=== PATIENT | male | born 1965 | race Caucasian/White ===

== ENCOUNTER 2022-12-14 13:52 | Inpatient (IN) | payer MEDICAID, SELFPAY ==
[2022-12-14 14:12] VITALS: BP 152/88; PULSE 100; RESP 16; TEMP 36.8; O2SAT 100
[2022-12-14 14:16] VITALS: BMI 21.6
[2022-12-14] MEDS: oxyCODONE 5 MG Tablet PO (16:15)
--- NOTE | 2022-12-14 16:40 | HP.PCM_ITS ---
[facility] - General General Date of Admission: 12/14/22 Date of Service: 12/14/22 Chief Complaint: Debility due to recent extensive back surgery due to canal stenosis. HPI Narrative VAISHALI QUIROZ, is a 57 M YO M with a PMH of Prurigo Nodularis, prior drug use, remote tobacco dependence since (quit 11/04/22), BPH, COPD, chronic Benzodiazepine use, chronic narcotic use, anxiety/depression and chronic back pain who recently had extensive back surgery extending from T2 to the pelvis. He had severe canal stenosis and flat back syndrome. HE has lost 20-25 lbs in recent months due to poor appetite associated with chronic severe pain. He has been taking Oxycodone 10 mg every 4 hours as needed for pain control. He was taking Dilaudid and Fentanyl at the previous hospital. He has become debilitated waiting for the surgery and his legs are very weak. He has a lot of difficulty ambulating. He was evaluated by PT/OT at the previous hospital and acute inpt rehab was recommended. He was transferred to the acute inpt rehab unit at [facility] on 12/14/22 for 3 hours of therapy daily to restore function at or near his baseline. [facility] Medical History (Updated 12/17/22 @ 10:[address] Elysia Noaln, ) Anxiety and depression Back pain BPH (benign prostatic hyperplasia) Central stenosis of spinal canal Chronic prescription benzodiazepine use COPD (chronic obstructive pulmonary disease) Prurigo nodularis Syncope Home Medications acetaminophen 325 mg tablet 650 mg PO Q6H PRN pain 1-10 12/14/22 [History Last Taken Unknown] albuterol sulfate 2.5 mg/0.5 mL solution for nebulization 2.5 mg inhalation Q6H PRN PRN sob/wheezing 12/14/22 [History Last Taken Unknown] clonazepam 0.5 mg tablet 0.5 mg PO BID Check with primary doctor 12/14/22 [History Last Taken Unknown] cyclobenzaprine 10 mg tablet 10 mg PO TID PRN muscle spasm 12/14/22 [History Last Taken Unknown] duloxetine 30 mg capsule,delayed release 30 mg PO BID Check with primary doctor 12/14/22 [History Last Taken Unknown] ferrous sulfate 325 mg (65 mg iron) tablet 325 mg PO DAILY supplement 12/14/22 [History Last Taken Unknown] fluticasone fur. 200 mcg-umeclid 62.5 mcg-vilant 25 mcg inhalat.powder (Trelegy Ellipta) 1 inh inhalation QHS Check with primary doctor 12/14/22 [History Last Taken Unknown] lidocaine 5 % topical patch (Lidoderm) 1 patch topical DAILY pain 12/14/22 [History Last Taken Unknown] montelukast 10 mg tablet 10 mg PO DAILY Check with primary doctor 12/14/22 [History Last Taken Unknown] nicotine 14 mg/24 hr daily transdermal patch 1 patch transdermal DAILY Check with primary doctor 12/14/22 [History Last Taken Unknown] oxycodone 5 mg tablet 5 - 10 mg PO Q4H PRN Pain 12/14/22 [History Last Taken Unknown] polyethylene glycol 3350 17 gram/dose oral powder (Miralax) 17 g PO QHS Check with primary doctor 12/14/22 [History Last Taken Unknown] tamsulosin 0.4 mg capsule 0.4 mg PO DAILY retention 12/14/22 [History Last Taken Unknown] triamcinolone acetonide 0.1 % topical ointment 1 applic topical BID Check with primary doctor 12/14/22 [History Last Taken Unknown] Allergy/AdvReac Type Severity Reaction Status Date / Time No Known Allergies Allergy Verified 12/14/22 14:18 Family History unable to obtain no significant family history Surgical History (Updated 12/17/22 @ 10:[address] Elysia Nolan DO) Fusion of spine, thoracolumbar region Social History Smoking Status: Former smoker how long ago did patient quit smokin11/04/22 ROS Constitutional Constitutional: Denies anorexia, chills, fatigue, fever(s) or night sweats Eyes Eyes: Denies blurry vision, change in vision, eye pain or loss of vision ENT HEENT: Denies abnormal hearing, dysphagia, headache(s), hearing loss, nasal congestion or sore throat Cardiovascular Cardiovascular: Reports chest pain and other Details: The pain in the chest is mostly in the rib and is BL. ; Denies dyspnea on exertion, edema, lightheadedness, orthopnea, palpitations, paroxysmal nocturnal dyspnea or syncope Respiratory/Chest Respiratory/Chest: Denies cough, dyspnea, shortness of breath at rest, shortness of breath with exertion or wheezing Gastrointestinal Gastrointestinal: Reports constipation; Denies abdominal pain, diarrhea, dyspepsia, hematemesis, hematochezia, nausea or vomiting Genitourinary Genitourinary: Denies dysuria, hematuria, nocturia, urinary frequency, urinary hesitancy, urinary incontinence or urinary urgency Musculoskeletal Musculoskeletal: Denies joint pain, joint swelling or neck pain Integumentary Integumentary: Reports other Details: He has multiple scars on the legs and arms due to Prurigo Nodularis. He is on Dupixent and triamcinolone cream to control the itching. Dupixent has been discontinued due to recent surgery. Neurologic Neurologic: Reports paresthesias, weakness and other Details: Has generalized weakness, more so in both legs and he has also had some muscle atrophy. He was ambulating at home without an assistive device but bent over with a flat back. He previously had bilateral lower extremity radicular pain but this has resolved since the surgery. ; Denies confusion, disequilibrium, dizziness, focal weakness, headache(s), radicular pain, seizures or tremor(s) Psychiatric Psychiatric: Reports anhedonia, anxiety, change in appetite, depression and difficulty concentrating; Denies auditory hallucinations, homicidal ideation or suicidal ideation Endocrine Endocrinology: Denies polydipsia or polyuria Hematologic/Lymphatic Hematologic/Lymphatic: Denies easy bleeding, easy bruising or lymphadenopathy Allergic/Immunologic Allergic/Immunologic: Reports other Details: He has Prurigo Nodularis and follows with dermatology. ; Denies rhinitis, eczemia or asthma Vital Signs Vital Signs Vital Signs: 12/14/22 14:12 Temperature 98.2 F Temperature Source Oral Pulse Rate 100 Respiratory Rate 16 Blood Pressure 152/88 H Blood Pressure Mean 109 Blood Pressure Source Monitor Blood Pressure Position Semi-Fowlers Blood Pressure Location Right Arm Pulse Ox 100 Oxygen Delivery Method Room Air Weight Weight: 146 lb 8 oz Body Mass Index (BMI) 21.6 Physical Exam Const alert, oriented x3 and no apparent distress Constitutional Narrative: Making good eye contact, appropriate. He is sitting in the recliner and has a lot of back pain. The incision extends from T2 down to S1. He is very thin and has temporal wasting. Tells me that he has lost 20 lbs since the cord compression started. The surgery took 10 and 1/2 hours. General Appearance: cooperative, well kempt and appears older than stated age; Negative for diaphoretic HEENT normocephalic, head/scalp atraumatic and hearing grossly normal bilaterally HEENT Narrative: Dry MM, tongue appears smooth and atrophic. Head and Scalp: normocephalic and atraumatic Face and Sinus: face symmetric Eyes PERRL, EOMs intact bilaterally, conjunctivae normal, no scleral icterus and normal visual rodrigues by confrontation General Eye: normal appearance of both eyes Neck no lymphadenopathy, supple, no JVD and no carotid bruits General: trachea midline Chest Chest Narrative: Mild gynecomastia.......denies ETOH abuse. Chest: symmetrical chest wall rise Resp normal respiratory effort, normal air movement, no use of accessory muscles and clear to auscultation bilaterally Resp Narrative: Not tachypneic and no conversational dyspnea. Good air exchange especially for someone with COPD who is a longtime smoker. Effort and Inspection: able to speak in complete sentences Cardio regular rhythm, S1 normal heart sound, S2 normal heart sound, no murmurs, no rub and no gallops Cardio Narrative: Increased resting HR at 100 - suspect due to dehydration and pain. No ectopy. GI normal to inspection, nondistended, normoactive bowel sounds, soft to palpation and non-tender GI Narrative: No guarding with palpation. Back/Spine Back/Spine Narrative: The incision extends from T2 to S1. He is having back pain but, the radicular pain has resolved since the surgery. There are a few localized area of david- incisional swelling but the incision is intact with no david-incisional erythema and no discharge . Normal cervical lordosis. Extremity no clubbing, cyanosis or edema and no calf tenderness Extremity Narrative: He has atrophy of the muscles in his legs. There are multiple scars on the extremities due to Prurigo Nodularis. No open lesions. Multiple areas of depigmentation. Skin Skin Narrative: No rashes, no skin breakdown. Wound Narrative: See Back/spin for description of the incision. Neuro oriented x3, CN's II-XII intact bilaterally and no focal motor deficits Neuro Narrative: Generalized weakness with paresthesias in the LLE but no radicular pain. Psych affect normal Psych Narrative: Appropriate, making good eye contact. Able to stay on topic and focus. No flight of ideas. Does not appear anxious . Admits to feeling depressed. He takes Klonopin 0.5 mg p.o. twice daily to control anxiety and help with constant scratching. Conversant and relating well to staff. Appearance: grossly normal, appropriate and well kempt Attitude: calm Activity / Motor Behavior: appropriate eye contact Speech: normal speech Thought Process: normal thought process Attention / Concentration: attention grossly intact and concentration grossly intact Results Lab / Micro Data Result Diagrams: 12/15/22 06:34 12/15/22 06:34 Assessment & Plan Assessment/Plan (1) Physical debility: (2) Central stenosis of spinal canal: (3) Fusion of spine, thoracolumbar region: (4) Anxiety and depression: (5) Chronic prescription benzodiazepine use: (6) Prurigo nodularis: (7) Recently quit using tobacco: (8) COPD (chronic obstructive pulmonary disease): (9) BPH (benign prostatic hyperplasia): PLAN: Plan PLAN PT for gait stability OT for ADL's Analgesics as needed Bowel protocol Fall precautions Assess for Anxiety/Depression GI prophylaxis-not necessary, patient has no nausea, vomiting or abdominal pain and he has no history of peptic ulcer disease. DVT prophylaxis with WILBUR hose and enoxaparin 40 mg subcu daily Follow up with neurosurgery, pain management and PCP following DC from IP Rehab AM lab including CMP, CBC, Mag and Phos and iron studies ordered for the AM. We discussed pain control. He is satisfied with Oxycodone 10 mg Q 4H PRN. He has not been sleeping well at night due to pain and restlessness. I offered to use Oxycontin at HS for a short time for better pain relief but, he declined. We went over the rules.......no getting up by himself and must call for assistance. We discussed depression and he admitted to feeling depressed at this time. He feels his anxiety is adequately controlled. He is on Duloxetine 30 mg BID.......may need to increase the dose or add Wellbutrin. Charges/Coding Visit Charges Inpatient E&M: 13346 Init Hosp L3
[2022-12-14] MEDS: Tamsulosin HCl 0.4 MG Capsule PO (16:58)
--- NOTE | 2022-12-14 17:31 | REHABEVAL_ITS ---
Admission Information Primary Diagnosis:: Physical debility secondary to extensive back surgery ranging from T2-pelvis. This document was not completed. Kamran left AMA Saturday AM prior to being seen by any of the therapy staff. Status Changes from Prescreening?: No changes Identified Actual Problem List:: Skin Intergrity, Pain, ALteration in Cmfrt, Depression, Bowel, Constipation, Alteration in Sleep, Alteration in Nutrition, Mobility Impaired, Self Care Deficit, BP, Hypertension, Fluid Change-Dehydration and Alteration-Leisure Activ. Potential Problem List:: DVT, Bleeding, Infection, UTI, Aspiration, Falls, Skin Integrity and Depression Risk of Complications DVT: LMWH and WILBUR Hose Bleeding: Monitor Lab Values, Nursing to Teach Precautions for anti-coagulation therapy., Wound, if applicable, to be assessed every shift. and Stroke patients assessed for lethargy or change in status. Infection: Clinical Staff to Monitor for S/S of infection: and S/S of infection include fever, redness, warmth, etc. Urinary Tract Infection: Monitor for frequency, burning, discomfort, or incontinence. and Nursing will obtain urine sample for urinalysis and C&S when ordered. Aspiration: Clinical staff will monitor for coughing, drooling, congestion., Speech will evaluate swallowing and dsyphasia. and Nursing will monitor patient swallowing during meals. Falls: Patient will be evaluated for Fall Precautions and Patient will be placed on Fall Precautions as indicated per protocol. Skin Breakdown: Nursing will assess skin daily using assessment tool. and Nursing will place on Skin Breakdown Precautions as indicated. Pain: Clinical staff will assess patient's pain level per protocol., Medications will be given, if needed, and the pain level reassessed. and Other methods: Massage, distraction, decrease stimulus, etc. used PRN. Plan of Care Patient requires physician specializing in physical medicine and rehab oversight to provide close medical supervision of rehab issues including: Pain Management, Sleep Problems, Bowel and Bladder, Medical and co-morbidity Management, DVT prophylaxis, Rehabilitation Leadership and Coordination of treatment team Patient needs Physical Therapy: For a minimum of 1 hour and At least 5 out of 7 days Patient needs Physical Therapy to improve:: Mobility, Strengthening, Transfers, Stretching, ROM, Endurance, Stairs, Gait and Balance Patient needs Occupational Therapy: For a minimum of 1 hour and At least 5 out of 7 days Patient needs Occupational Therapy to improve ADL's incl.: Eating, Grooming, Bathing, Dressing, Toileting, Toilet transfers, Community Reintegration, Higher functioning activities, Household tasks, Adaptive Equipment, Splinting and Other activities as determined Patient requires 24/7 Rehabilitation Nursing for: Pain Issues, Identifying and preventing risk factors, Monitoring and reporting current medical conditions, As sisting with ambulation, transfer, and all ADL's, Teaching patients about disease process and medications, Family teaching, Providing safe environment, Bowel and Bladder Issues, Skin integrity and Medication Management Patient needs Clinical Documentation Spec/ Case Management for: Discharge Planning, Arranging Home Equipment or Services and Family Interventions Patient needs Dietary and Nutrition Services for: Adequate Nutrition, Nutritional Supplements and Nutritional Education
[2022-12-14 20:19] VITALS: BP 155/79; PULSE 99; RESP 16; TEMP 36.7; O2SAT 100
[2022-12-14] MEDS: Triamcinolone 0.1% Ointment 15 gm tube 1 APPLIC TOPICAL (20:27)
[2022-12-14] MEDS: clonazePAM 0.5 MG Tablet PO (20:27)
[2022-12-14] MEDS: Montelukast 10 MG Tablet PO (20:28)
[2022-12-14] MEDS: oxyCODONE 5 MG Tablet 10 MG PO (20:28)
[2022-12-14] MEDS: Senna/Docusate Sodium 1 Tablet 2 TABLET PO (20:28)
[2022-12-14] MEDS: DULoxetine Hcl 30 MG Capsule PO (20:28)
[2022-12-14] MEDS: cycloBENZAPRine HCl 10 MG Tablet PO (22:23)
[2022-12-14] MEDS: Acetaminophen 325 MG Tablet 650 MG PO (22:23)
--- NOTE | 2022-12-14 22:45 | NURSING ---
Addendum entered by Lisbeth Williamson 12/15/22 06:47: Pt has been restless all night, has not slept much, getting up and down to chair every 20-30 minutes. Pt found several times leaning over in the chair, bending at the waist, advised that he should not be doing that, pt states that's the only position that I can get relief. Complaining of rib pain, states they had me on the operating table for 10 hours and I'm pretty sure they bruised my ribs. Asked pt if he thinks it is tightness from his COPD, pt states No, this is the 5th back surgery I've had, I know what the pain feels like. Asked pt if there was anything I could do to help, pt states no, you have done everything you could, it's not you, I just don't think I'm ready to have therapy. Explained to pt how important therapy is to have correct healing. Pt states that when he's ready, he will do it. Pt is asking this morning to sign out. Again I asked pt how he plans to control his pain at home, pt states I'll figure something out, but I'm not staying here, I'm miserable. Pt willing to talk to this morning, but states his sister Marianne is coming to pick him up at 0800. Original Note: Pt has been restless this evening, has been up and down to chair several times for 15-20 minutes at a time. Pt has been given Oxy ir, Flexeril and Tylenol. Polar care given, but pt only put it on his back for 10 minutes then states it doesn't work. Pt states, they took me off the Dilaudid this morning and that was what was helping me. Pt is very resistant to any advice, encouraged him to lie flat in bed with pillows and ice, pt states it doesn't help. Pt states he talked to his sister and tried to get her to pick him up, states he wants to go home. Asked pt how he would control his pain at home, he states I don't know, but I think I came here too soon, I don't think I'll be able to do the therapy anyway. Encouraged pt to stay and try therapy, told him that he would only have his eval today and none on Saturday, so he should wait until Saturday to see how it goes. Pt states he would try, willing to stay at this time. Offered to have the paged to see if he can get anything more for pain. Pt states he doesn't think it will help. Assisted back to bed at this time, pt lying on side with knees pulled up, pillow between knees.
[2022-12-15] MEDS: oxyCODONE 5 MG Tablet 10 MG PO ×2 (00:30→04:44)
[2022-12-15 03:45] VITALS: BMI 21.4
[2022-12-15] MEDS: Lidocaine 5% Patch 1 PATCH TOPICAL (04:45)
[2022-12-15] MEDS: cycloBENZAPRine HCl 10 MG Tablet PO (04:45)
[2022-12-15] MEDS: Enoxaparin 40 MG/0.4 ML Syringe SC (04:45)
[2022-12-15 06:41] LABS: Absolute Neutrophil Count 7.2 X10^3/uL (2.0-7.7); Basophil# 0.07 X10^3/uL; Basophil% 0.7 % (0-1); Hematocrit 32.1 % (40-54); Hemoglobin 10.4 g/dL (13.0-16.5); Lymphocyte % 20.6 % (19-41); Mean Corp Hgb Conc 32.4 g/dL (32-36); Mean Corpuscular Hgb 29.1 pg (27.0-32.0); Mean Corpuscular Volume 89.9 fL (80-94); Mean Platelet Vol. 9.2 fl (6.2-12.0); Monocyte# 1.06 X10^3/uL; Monocyte% 9.9 % (0-10); NRBC Flagged by Analyzer 0 % (0-5); Neutrophil # 7.16 X10^3/uL (2.7-7.7); Platelet Count 453 K/mm3 (150-450); RBC Distribution Width CV 16.3 % (11.6-14.6); RBC Distribution Width SD 53.1 fl (35.1-43.9); Red Blood Count 3.57 M/mm3 (4.6-6.2); White Blood Count 10.7 K/mm3 (4.4-11.0)
[2022-12-15 07:00] VITALS: BP 154/90; PULSE 94; RESP 18; TEMP 36.7; O2SAT 100
--- NOTE | 2022-12-15 07:20 | NURSING ---
Patient signed AMA papers and he requested to be escorted in w/c to the main entrance and his sister is on her way he reported. Patient's behavior is erratic and impulsive along with non compliance. Discharged at this time. Dr. Nolan sent message and hearing aid assembly supervisor aware.
[2022-12-15 07:21] LABS: ALB/GLOB Ratio 0.7 RATIO (0.9-2.4); AST(SGOT) 26 U/L (15-37); Alanine Aminotransfer ALT/SGPT 32 U/L (16-61); Albumin, Serum 2.5 g/dL (3.2-5.0); Alkaline Phosphatase 95 U/L (45-117); Anion Gap 4 (5-15); BUN 9 mg/dL (7-18); BUN/Creat Ratio 12.8 RATIO (10-20); Calcium,Total 8.9 mg/dL (8.5-10.1); Chloride 103 mmol/L (98-107); EST Glomerular Filtration Rate 123 mL/min (>60); Est Glom Filt Rate - Afr Amer 148 mL/min (>60); Estimated Creatinine Clearance 106.89 ml/min; Ferritin 109 ng/mL (26-388); Globulin 3.7 g/dL (2.2-4.2); Glucose 108 mg/dL (74-106); Iron 32 ug/dL (65-175); Iron Binding Capacity,Total 217 ug/dL (250-450); Magnesium 1.8 mg/dL (1.6-2.6); PERCENT IRON SATURATION 14.7 % (15.0-55.0); Phosphorus 3.2 mg/dL (2.5-4.9); Potassium 3.8 mmol/L (3.5-5.1); Protein, Total 6.2 g/dL (6.4-8.2); Sodium Level 134 mmol/L (136-145)
--- NOTE | 2022-12-17 17:02 | PCM.DC.SUM ---
Providers Date of Admission: 12/14/22 Reason For Visit: LAMINECTOMY Diagnosis Discharge Diagnosis (1) Physical debility: Status: Acute Code(s): R53.81 - Other malaise (2) Central stenosis of spinal canal: Status: Acute Code(s): M48.00 - Spinal stenosis, site unspecified (3) Fusion of spine, thoracolumbar region: Status: Acute Code(s): M43.25 - Fusion of spine, thoracolumbar region (4) Anxiety and depression: Status: Acute Code(s): F41.9 - Anxiety disorder, unspecified; F32.A - Depression, unspecified (5) Chronic prescription benzodiazepine use: Status: Acute Code(s): Z79.899 - Other intermediate (current) drug therapy (6) Prurigo nodularis: Status: Acute Code(s): L28.1 - Prurigo nodularis (7) Recently quit using tobacco: Status: Acute Code(s): Z87.891 - Personal history of nicotine dependence (8) COPD (chronic obstructive pulmonary disease): Status: Chronic Code(s): J44.9 - Chronic obstructive pulmonary disease, unspecified (9) BPH (benign prostatic hyperplasia): Status: Acute Code(s): N40.0 - Benign prostatic hyperplasia without lower urinary tract symptoms Plan PLAN PT for gait stability OT for ADL's Analgesics as needed Bowel protocol Fall precautions Assess for Anxiety/Depression GI prophylaxis-not necessary, patient has no nausea, vomiting or abdominal pain and he has no history of peptic ulcer disease. DVT prophylaxis with WILBUR hose and enoxaparin 40 mg subcu daily Follow up with neurosurgery, pain management and PCP following DC from IP Rehab AM lab including CMP, CBC, Mag and Phos and iron studies ordered for the AM. We discussed pain control. He is satisfied with Oxycodone 10 mg Q 4H PRN. He has not been sleeping well at night due to pain and restlessness. I offered to use Oxycontin at HS for a short time for better pain relief but, he declined. We went over the rules.......no getting up by himself and must call for assistance. We discussed depression and he admitted to feeling depressed at this time. He feels his anxiety is adequately controlled. He is on Duloxetine 30 mg BID.......may need to increase the dose or add Wellbutrin. Medications at Discharge Home Medications acetaminophen 325 mg tablet 650 mg PO Q6H PRN pain 1-10 12/14/22 albuterol sulfate 2.5 mg/0.5 mL solution for nebulization 2.5 mg inhalation Q6H PRN PRN sob/wheezing 12/14/22 clonazepam 0.5 mg tablet 0.5 mg PO BID Check with primary doctor 12/14/22 cyclobenzaprine 10 mg tablet 10 mg PO TID PRN muscle spasm 12/14/22 duloxetine 30 mg capsule,delayed release 30 mg PO BID Check with primary doctor 12/14/22 ferrous sulfate 325 mg (65 mg iron) tablet 325 mg PO DAILY supplement 12/14/22 fluticasone fur. 200 mcg-umeclid 62.5 mcg-vilant 25 mcg inhalat.powder (Trelegy Ellipta) 1 inh inhalation QHS Check with primary doctor 12/14/22 lidocaine 5 % topical patch (Lidoderm) 1 patch topical DAILY pain 12/14/22 montelukast 10 mg tablet 10 mg PO DAILY Check with primary doctor 12/14/22 nicotine 14 mg/24 hr daily transdermal patch 1 patch transdermal DAILY Check with primary doctor 12/14/22 oxycodone 5 mg tablet 5 - 10 mg PO Q4H PRN Pain 12/14/22 polyethylene glycol 3350 17 gram/dose oral powder (Miralax) 17 g PO QHS Check with primary doctor 12/14/22 tamsulosin 0.4 mg capsule 0.4 mg PO DAILY retention 12/14/22 triamcinolone acetonide 0.1 % topical ointment 1 applic topical BID Check with primary doctor 12/14/22 Hospital Course Procedures - (He underwent extensive back surgery extending from T2 to the pelvis prior to being admitted to rehab. ) Summary of Care Provided Minutes Spent on Discharge: 15 Hospital Course: The pt was admitted to rehab on 12/14/22 (please see the H&P) and he left early in the morning of 12/15/22 AMA. He left prior to me seeing on the . He was told by nursing to follow up with the surgeon. He was asking nursing throughout the night for Fentanyl and Dilaudid. He left without prescriptions. I called his sister on 12/17/22 to inquire how he was doing and she told me that he was doing good. She got him a walker to use and he was ambulating with it. He is going to call the surgeon to inform him that he left AMA and to ask for pain medication. I instructed his sister Marianne to call me if they could not reach the surgeon today or if the surgeon would not give him any pain medication. Physical Exam Narrative Pt left AMA on 12/15/22 and I was not present to examine him. Weight / BMI Weight Weight: 144 lb 13.499 oz Body Mass Index (BMI) 21.4 ABG / Lab / Microbiology Data Result Diagrams: 12/15/22 06:34 12/15/22 06:34 Meaningful Use Info Meaningful Use Diagnoses (Choose all that apply): None applicable Discharge Plan Admission Admit Date/Time: 12/14/22 13:52 Attending Provider: Elysia Nolan Discharge Orders/Prescriptions Prescriptions: No Action cyclobenzaprine 10 mg Tablet 10 mg PO TID PRN (Reason: muscle spasm ) acetaminophen 325 mg Tablet 650 mg PO Q6H PRN (Reason: pain 1-10) nicotine 14 mg/24 hr Patch 24 Hour 1 patch TRANSDERMAL DAILY clonazepam 0.5 mg Tablet 0.5 mg PO BID tamsulosin 0.4 mg Capsule 0.4 mg PO DAILY ferrous sulfate 325 mg (65 mg iron) Tablet 325 mg PO DAILY triamcinolone acetonide 0.1 % Ointment 1 applic TOPICAL BID montelukast 10 mg Tablet 10 mg PO DAILY polyethylene glycol 3350 [Miralax] 17 gram/dose Powder 17 g PO QHS oxycodone 5 mg Tablet 5 - 10 mg PO Q4H PRN (Reason: Pain) Rx Instructions: 5mg pain 1-4 10mg pain 5-10mg albuterol sulfate 2.5 mg/0.5 mL Solution For Nebulization 2.5 mg INHALATION Q6H PRN PRN (Reason: sob/wheezing) duloxetine 30 mg Capsule,Delayed Release(Dr/Ec) 30 mg PO BID Trelegy Ellipta 200-62.5-25 mcg Blister With Device 1 inh INHALATION QHS lidocaine [Lidoderm] 5 % Adhesive Patch,Medicated 1 patch TOPICAL DAILY Rx Instructions: leave on most painful area for up to 12 hrs Disposition Disposition (needs filled in before D/C Order can be placed): Against Medical Advice Charges/Coding Visit Charges Inpatient E&M: 42432 Disch Hosp
== END 2022-12-15 07:25 | disposition left against medical advice (07) | DRG 862 ==
PROVIDERS: Admitting Provider Internal Medicine; Visit Provider Internal Medicine
DX: Z47.89 Encounter for other orthopedic aftercare (principal); M48.04 Spinal stenosis, thoracic region; J44.9 Chronic obstructive pulmonary disease, unspecified; F13.99 Sedative, hypnotic or anxiolytic use, unspecified with unspecified sedative, hypnotic or anxiolytic-induced disorder; M48.00 Spinal stenosis, site unspecified; L28.1 Prurigo nodularis; M48.061 Spinal stenosis, lumbar region without neurogenic claudication; M48.08 Spinal stenosis, sacral and sacrococcygeal region; N40.0 Benign prostatic hyperplasia without lower urinary tract symptoms; Z98.1 Arthrodesis status; Z87.891 Personal history of nicotine dependence; Z79.899 Other long term (current) drug therapy
CPT/HCPCS: 36415; 80053; 82728; 83540; 83550; 83735; 84100; 85025; 97802